=== PATIENT | female | born 1980 | race Caucasian/White ===

== ENCOUNTER 2016-12-17 08:27 | Outpatient (RCR) | payer OTHER ==
[~2016-12-17] VITALS: Ht 162.6 cm; Wt 94.8 kg
[~2016-12-17 08:27] MED LIST: FRS325T PO; IBP600T1 PO; LVT.15T PO; PREN1TAB64 PO
[2016-12-17] MEDS ORDERED: IRON SUCROSE 200 MG/10 ML (VENOFER) VIAL IV ONE (08:37)
[2016-12-17] MEDS ORDERED: NS (IVPB) 0 ML ONE (08:37)
[2016-12-17] MEDS ORDERED: NS (IVPB) 50 ML ONE (08:38)
[2016-12-17 08:50] VITALS: BP 109/79
[2016-12-17] MEDS ORDERED: IRON SUCROSE 200 MG/10 ML (VENOFER) VIAL IV SCH (09:15)
[2016-12-17 09:48] VITALS: BP 109/79
[2016-12-17] MEDS ORDERED: CITA20TA12 PO (10:09)
[2016-12-20] MEDS ORDERED: IRON SUCROSE 200 MG/10 ML (VENOFER) VIAL IV ONE (08:13)
[2016-12-20] MEDS ORDERED: NS (IVPB) 50 ML ONE (08:13)
== END 2016-12-18 | disposition home or self-care (01) ==
LOC: SDC 08:27
PROVIDERS: ATTEND Internal Medicine
DX: D50.9 Iron deficiency anemia, unspecified (principal)
CPT/HCPCS: 96365

== ENCOUNTER 2016-12-27 08:14 | Outpatient (RCR) | payer OTHER ==
[2016-12-20 08:50] VITALS: BP 111/76
[2016-12-22 08:14] VITALS: BP 116/69
[2016-12-24 08:43] VITALS: BP 116/64
[~2016-12-27] VITALS: Ht 162.6 cm; Wt 94.8 kg
[~2016-12-27 08:14] MED LIST changes: +CITA20TA12 PO; +IRON SUCROSE 200 MG/10 ML (VENOFER) VIAL IV ONE; +IRON SUCROSE 200 MG/10 ML (VENOFER) VIAL IV SCH; +IRON SUCROSE 200 MG/NS 100 ML (IVPB) IV SCH; +NS (IVPB) 50 ML ONE
[2016-12-27] MEDS ORDERED: IRON SUCROSE 200 MG/NS 100 ML (IVPB) IV SCH ×2 (08:30)
[2016-12-27 08:54] VITALS: BP 115/73
== END 2016-12-27 09:31 | disposition home or self-care (01) ==
LOC: SDC 08:14
PROVIDERS: ATTEND Internal Medicine
DX: D50.9 Iron deficiency anemia, unspecified (principal)
CPT/HCPCS: 96365

== ENCOUNTER → 2019-08-02 | Outpatient (CLI) | payer OTHER ==
[~2019-08-02] MED LIST changes: -IRON SUCROSE 200 MG/10 ML (VENOFER) VIAL IV ONE; -IRON SUCROSE 200 MG/10 ML (VENOFER) VIAL IV SCH; -IRON SUCROSE 200 MG/NS 100 ML (IVPB) IV SCH; -NS (IVPB) 50 ML ONE
--- NOTE | 2019-08-02 15:31 | Diagnostic Imaging Report ---
INDICATION: Foot pain. TECHNIQUE: 3 views of the bilateral feet, 3:15 PM CORRELATION STUDY: None FINDINGS: The osseous structures of the feet are intact and have a unremarkable appearance. Joint spaces are maintained. Incidental note of a.m. bipartite medial sesamoid bone left great toe. Alignment anatomic. Soft tissues appearing unremarkable. IMPRESSION: 1. Unremarkable examination bilateral feet. Dictated by: Dictated on workstation # [id number]
--- NOTE | 2019-08-02 17:28 | Diagnostic Imaging Report ---
INDICATION: Bilateral hand pain. TIME OF EXAM: 03:16 p.m. FINDINGS: Multiple views of bilateral hands were obtained. Alignment is normal. The MCP and interphalangeal joints are well maintained. No osseous erosions are identified. No soft tissue calcifications are seen. Carpi are unremarkable. There are no fractures. IMPRESSION: Unremarkable bilateral hand radiographs. Dictated by: Dictated on workstation # [id number]
== END ==
LOC: RAD 14:57
PROVIDERS: ATTEND Internal Medicine
DX: M79.641 Pain in right hand (principal); M79.642 Pain in left hand; M79.671 Pain in right foot; M79.672 Pain in left foot

== ENCOUNTER → 2022-09-22 | Outpatient (CLI) | payer BC ==
--- NOTE | 2022-09-22 11:46 | Diagnostic Imaging Report ---
PROCEDURE: CT abdomen and pelvis without contrast. TECHNIQUE: Multiple contiguous axial images were obtained through the abdomen and pelvis without the use of intravenous contrast. Auto Exposure Controls were utilized during the CT exam to meet ALARA standards for radiation dose reduction. INDICATION: Hematuria. No prior studies are available for comparison. FINDINGS: The lung bases are clear. The liver and gallbladder are unremarkable. There is no biliary ductal dilatation. Pancreas and spleen are unremarkable. No adrenal mass is detected. No renal or ureteral calculi are identified. There is no hydronephrosis. Aorta is nonaneurysmal. The bowel loops are normal caliber. Appendix unremarkable. No inflammatory changes are seen. No free fluid or fluid collection is identified. Uterus and ovaries are unremarkable. The bladder is decompressed. IMPRESSION: Unremarkable noncontrast CT of the abdomen and pelvis. No urinary tract calculi or obstruction is identified. Dictated by: Dictated on workstation # [id number]
== END ==
LOC: RAD 11:05
PROVIDERS: ATTEND Internal Medicine
DX: R31.9 Hematuria, unspecified (principal)
CPT/HCPCS: 74176

== ENCOUNTER → 2023-02-07 | Outpatient (CLI) | payer BC ==
--- NOTE | 2023-02-07 08:40 | Diagnostic Imaging Report ---
INDICATION: Routine screening. No prior mammograms are available for comparison. This a baseline study. 2-D and 3-D bilateral screening mammography was performed with CAD. Scattered fibroglandular densities are identified bilaterally. No dominant mass or malignant-appearing microcalcifications are seen. Occasional benign calcifications. Axillae are unremarkable. IMPRESSION: No mammographic features suspicious for malignancy are identified. ACR BI-RADS Category 2: Benign findings. Result letter will be mailed to the patient. Note: At least 10% of breast cancer is not imaged by mammography. BI-RADS Category 2 Dictated by: Dictated on workstation # [id number]
== END ==
LOC: RAD 07:34
PROVIDERS: ATTEND Internal Medicine
DX: Z12.31 Encounter for screening mammogram for malignant neoplasm of breast (principal)
CPT/HCPCS: 77063; 77067